=== PATIENT | female | born 1950 | race Caucasian/White ===

== ENCOUNTER 2016-12-15 10:59 | Outpatient (CLI) | payer MEDICARE | END 2016-12-15 11:00 | disposition home or self-care (01) | DX: Z12.31 Encounter for screening mammogram for malignant neoplasm of breast (principal) ==

== ENCOUNTER 2016-12-15 11:00 | Outpatient (CLI) | payer MEDICARE | END 2016-12-15 11:01 | disposition home or self-care (01) | DX: J01.91 Acute recurrent sinusitis, unspecified (principal) ==

== ENCOUNTER 2016-12-19 10:20 | Outpatient (CLI) | payer MEDICARE | END 2016-12-19 10:21 | disposition home or self-care (01) | DX: R51 Headache (principal) ==

== ENCOUNTER 2018-08-16 08:55 | Outpatient (CLI) | payer MEDICARE, OTHER ==
[2018-08-16 12:30] LABS: BASOPHILS % (AUTO) 0.8 %; EOSINOPHILS # (AUTO) 0.1 10^3/uL (0.0-0.7); EOSINOPHILS % (AUTO) 1.7 %; LYMPHOCYTES # (AUTO) 1.3 10^3/uL (1.5-3.5); LYMPHOCYTES % (AUTO) 19.4 %; MEAN CORPUSCULAR HGB CONC 34.3 g/dL (32.0-36.0); MEAN CORPUSCULAR VOLUME 96.3 fL (81.0-99.0); MEAN PLATELET VOLUME 8.1 fL (7.9-10.8); MONOCYTES # (AUTO) 0.5 10^3/uL (0.0-1.0); MONOCYTES % (AUTO) 7.2 %; NEUTROPHILS # (AUTO) 4.6 10^3/uL (1.5-6.6); NEUTROPHILS % (AUTO) 70.9 %; PLT - PLATELET COUNT 291 10^3/uL (130-450); RED BLOOD COUNT 4.23 10^6/uL (4.20-5.40); RED CELL DISTRIBUTION WIDTH 13.1 % (12.0-15.0); WHITE BLOOD COUNT 6.5 x10^3/uL (4.8-10.8)
[2018-08-16 12:47] LABS: ALBUMIN 4.1 g/dL (3.2-5.5); BILIRUBIN,TOTAL 0.9 mg/dL (0.2-1.0); CALCIUM 9.7 mg/dL (8.5-10.3); TOTAL PROTEIN 6.2 g/dL (6.7-8.2)
== END 2018-08-16 08:56 | disposition home or self-care (01) ==
LOC: LAB.WCP 08:55
PROVIDERS: ATTEND Family Medicine
DX: R10.9 Unspecified abdominal pain (principal)
CPT/HCPCS: 36415; 80053; 82150; 83690; 85025

== ENCOUNTER 2018-08-22 13:23 | Outpatient (CLI) | payer MEDICARE, OTHER ==
[2018-08-22] MEDS ORDERED: IOVERSOL 320 50 ML VIAL ONE (14:15)
[2018-08-22] MEDS ORDERED: IOPAMIDOL-300 100 ML VIAL ONE ×2 (14:15→14:16)
[2018-08-22] MEDS ORDERED: IOPAMIDOL-300 100 ML VIAL IVP ONE (15:33)
[2018-08-22] MEDS ORDERED: IOVERSOL 320 50 ML VIAL PO ONE (15:33)
--- NOTE | 2018-08-22 16:09 | CT Report ---
Reason: ABDOMINAL PAIN Procedure Date: 08/22/2018 Accession Number: [id number] / [id number] Procedure: CT - Abdomen/Pelvis W/ CPT Code: FULL RESULT: EXAM: CT ABDOMEN AND PELVIS EXAM DATE: 08/22/2018 03:32 PM. CLINICAL HISTORY: ABDOMINAL PAIN. COMPARISONS: ABDOMEN/PELVIS W/ 05/25/2016 12:22 PM. TECHNIQUE: Routine helical CT imaging was performed through the abdomen and pelvis. IV contrast: ISOVUE 300 100mL. Enteric contrast: Yes. Reconstructions: Coronal and sagittal. In accordance with CT protocol optimization, one or more of the following dose reduction techniques were utilized for this exam: automated exposure control, adjustment of mA and/or KV based on patient size, or use of iterative reconstructive technique. FINDINGS: Lung Bases: Unremarkable. Liver: Normal. No masses. Gallbladder/Bile Ducts: Unremarkable. Spleen: Normal. Pancreas: Normal. Adrenal Glands: Normal. Kidneys: Normal. No masses or hydronephrosis. Peritoneal Cavity/Bowel: The region of the ileocecal valve while not opacified with contrast gives the appearance of ileocecal intussusception. There is rectosigmoid diverticulosis without diverticulitis. No free fluid, free air or adenopathy. No masses or acute inflammatory process. Pelvic Organs: Evaluation of pelvic organs is limited by streak artifact from the bilateral arthroplasties. Vasculature: No aneurysms or other significant abnormality. Bones: Degenerative levoconvex lumbar scoliosis centered about L2-L3, mild. No aggressive osseous lesions. Bilateral total hip arthroplasties. Other: None. IMPRESSION: Question ileocecal intussusception. This condition is not normally encountered in adults without superimposed lead point pathology, i.E. occult mass. Recommendation: The ambulatory technologist informs me that the patient has a history of incomplete colonoscopies due to redundant colon. Given the CT findings, a complete colonoscopy with visualization of the cecum is mandatory. THANH The above findings of apparent ileocecal intussusception were discussed with Sulaiman Adorno by Dr. Nik Marks at 16:07 hrs on 08/22/18.
== END 2018-08-22 13:24 | disposition home or self-care (01) ==
LOC: DI 13:23
PROVIDERS: ATTEND Family Medicine
DX: R10.9 Unspecified abdominal pain (principal)
CPT/HCPCS: 74177; Q9967

== ENCOUNTER 2019-09-02 13:21 | Outpatient (CLI) | payer MEDICARE, OTHER ==
--- NOTE | 2019-09-03 08:17 | Mammography Report ---
Reason: screening mammo Procedure Date: 09/02/2019 Accession Number: [id number] / [id number] Procedure: MGN - Screening Mammo Dig Bilat CPT Code: Final Report FULL RESULT: EXAM: Screening Mammo Dig Bilat DATE: 09/02/2019 1:49 PM CLINICAL HISTORY: Screening encounter. History of nulliparity and history of endometrial cancer. TECHNIQUE: (B) - Bilateral CC, laterally exaggerated CC, MLO views were obtained. COMPARISON: 12/15/2016 through 01/01/2010. PARENCHYMAL PATTERN: (F) - The breast(s) demonstrate(s) diffuse fatty replacement. FINDINGS: There are no suspicious masses, calcifications, or areas of distortion. IMPRESSION: Negative examination. BI-RADS category 1. RECOMMENDATION: (ANNUAL) - Recommend routine annual screening mammography. BI-RADS CATEGORY: (1) - Negative. STANDARD QUALIFYING STATEMENTS: 1. This examination was not reviewed with the aid of Computer-Aided Detection (CAD). 2. A negative or benign imaging report should not preclude biopsy if clinically suspicious findings are present. 3. Dense breasts may obscure an underlying neoplasm. 4. This examination was reviewed without the aid of 3D breast imaging (tomosynthesis).
== END 2019-09-02 13:22 | disposition home or self-care (01) ==
LOC: DI.N 13:21
DX: Z12.31 Encounter for screening mammogram for malignant neoplasm of breast (principal)
CPT/HCPCS: 77067

== ENCOUNTER 2019-09-18 07:00 | Outpatient (CLI) | payer MEDICARE, OTHER ==
[2019-09-18 13:17] LABS: ALBUMIN 4.1 g/dL (3.2-5.5); ALBUMIN/GLOBULIN RATIO 1.5 (1.0-2.2); ALKALINE PHOSPHATASE 58 IU/L (42-121); ALT ALANINE AMINOTRANSFERASE 25 IU/L (10-60); AST ASPARTATE AMINOTRANSFERASE 29 IU/L (10-42); BILIRUBIN,TOTAL 0.8 mg/dL (0.2-1.0); BUN - BLOOD UREA NITROGEN 17 mg/dL (6-20); CALCIUM 9.6 mg/dL (8.5-10.3); CARBON DIOXIDE - CO2 31 mmol/L (21-32); CHLORIDE 103 mmol/L (101-111); CHOL/HDL RATIO 3.1 (<4.4); CHOLESTEROL 258 mg/dL; CREATININE 0.8 mg/dL (0.4-1.0); GFR - MDRD 72 (>89); GLUCOSE 82 mg/dL (70-100); HDL CHOLESTEROL 82 mg/dL; LDL CHOLESTEROL,CALCULATED 156 mg/dL; LDL/HDL RATIO 1.9 (<4.4); SODIUM 141 mmol/L (135-145); TOTAL PROTEIN 6.9 g/dL (6.7-8.2); VLDL CHOLESTEROL 20 mg/dL
[2019-09-18 13:25] LABS: BASOPHILS # (AUTO) 0.1 10^3/uL (0.0-0.1); BASOPHILS % (AUTO) 1.7 %; EOSINOPHILS # (AUTO) 0.2 10^3/uL (0.0-0.7); EOSINOPHILS % (AUTO) 5.3 %; HGB - HEMOGLOBIN 14.4 g/dL (12.0-16.0); LYMPHOCYTES # (AUTO) 1.3 10^3/uL (1.5-3.5); LYMPHOCYTES % (AUTO) 37.4 %; MEAN CORPUSCULAR HEMOGLOBIN 31.4 pg (27.0-31.0); MEAN CORPUSCULAR HGB CONC 32.1 g/dL (32.0-36.0); MEAN PLATELET VOLUME 9.6 fL (7.9-10.8); MONOCYTES # (AUTO) 0.4 10^3/uL (0.0-1.0); MONOCYTES % (AUTO) 10.7 %; NEUTROPHILS # (AUTO) 1.6 10^3/uL (1.5-6.6); NEUTROPHILS % (AUTO) 44.6 %; PLT - PLATELET COUNT 259 10^3/uL (130-450); RED BLOOD COUNT 4.58 10^6/uL (4.20-5.40); RED CELL DISTRIBUTION WIDTH 12.9 % (12.0-15.0); WHITE BLOOD COUNT 3.6 x10^3/uL (4.8-10.8)
[2019-09-19 12:19] LABS: HEPATITIS C ANTIBODY NON-REACTIVE (NON-REACTIVE)
== END 2019-09-18 23:59 | disposition home or self-care (01) ==
LOC: LAB.WCP 07:00
PROVIDERS: ATTEND Family Medicine
DX: E78.5 Hyperlipidemia, unspecified (principal); R10.9 Unspecified abdominal pain; Z11.59 Encounter for screening for other viral diseases
CPT/HCPCS: 36415; 80053; 80061; 83721; 84443; 85025; 86803

== ENCOUNTER 2019-10-01 13:35 | Outpatient (CLI) | payer MEDICARE, OTHER ==
--- NOTE | 2019-10-01 15:47 | DEXA Report ---
Reason: POSTMENOPAUSAL Procedure Date: 10/01/2019 Accession Number: [id number] / [id number] Procedure: DEX - Dexa Forearm CPT Code: Final Report FULL RESULT: EXAM: Dexa Spine and/or Hip, Dexa Forearm DATE: 10/01/2019 2:32 PM CLINICAL HISTORY: POSTMENOPAUSAL. FOLLOW-UP OSTEOPENIA. TECHNIQUE: TECHNIQUE: Dual energy x-ray absorptiometry (DXA) was performed on a [employer] System. Regions measured are the AP Spine and left forearm. The patient has bilateral hip replacements. COMPARISON: 04/21/2015. In accordance with the International Society for Clinical Densitometry (ISCD) guidelines, data from previous exams may be reanalyzed using current recommendations and techniques. This is done to allow a more accurate basis for comparison with the current study. FINDINGS: The data for the lumbar spine is as follows: BMD (g/cm/cm) T-SCORE Z-SCORE REGION L1 0.919 -1.8 0.1 L2 1.065 -1.1 0.7 L3 1.378 1.5 3.3 L4 1.288 0.7 2.6 TOTAL 1.171 -0.1 1.8 NOTE: All evaluable vertebrae are used for classification The data for the left forearm is as follows: BMD (g/cm/cm) T-SCORE Z-SCORE REGION 1/3 0.595 -3.2 -1.6 NOTE: The 33% radius of the nondominant forearm is used for classification. IMPRESSION: THE WHO CLASSIFICATION BASED ON THE INTERNATIONAL REFERENCE STANDARD IS OSTEOPOROSIS, REFERENCE LEFT FOREARM. THE FRACTURE RISK IS HIGH. RECOMMENDATION: Patients with diagnosis of osteoporosis or osteopenia should have regular bone mineral density assessment. For those eligible for Medicare, routine testing is allowed once every 2 years. Testing frequency can be increased for patients who have rapidly progressing disease or for those who are receiving medical therapy to restore bone mass. COMMENT: World Health Organization (WHO) definitions for osteoporosis and osteopenia: NORMAL BMD: T-score at -1.0 or higher, fracture risk is low OSTEOPENIA BMD: T-score between -1.0 and -2.5, fracture risk is increased. OSTEOPOROSIS BMD: T-score at -2.5 or lower, fracture risk is high. National Osteoporosis Foundation recommends: 1. Obtain adequate dietary calcium (at least 1200 mg per day) and vitamin D (400-800 international units per day). 2. Participate, as appropriate, in regular weightbearing and muscle-strengthening exercise. 3. Avoid tobacco use and reduce alcohol and caffeine intake. 4. For more detailed information see the website at www.NOF.org.
--- NOTE | 2019-10-01 15:47 | DEXA Report ---
Reason: POSTMENOPAUSAL Procedure Date: 10/01/2019 Accession Number: [id number] / [id number] Procedure: DEX - Dexa Spine and/or Hip CPT Code: Final Report FULL RESULT: EXAM: Dexa Spine and/or Hip, Dexa Forearm DATE: 10/01/2019 2:32 PM CLINICAL HISTORY: POSTMENOPAUSAL. FOLLOW-UP OSTEOPENIA. TECHNIQUE: TECHNIQUE: Dual energy x-ray absorptiometry (DXA) was performed on a [employer] System. Regions measured are the AP Spine and left forearm. The patient has bilateral hip replacements. COMPARISON: 04/21/2015. In accordance with the International Society for Clinical Densitometry (ISCD) guidelines, data from previous exams may be reanalyzed using current recommendations and techniques. This is done to allow a more accurate basis for comparison with the current study. FINDINGS: The data for the lumbar spine is as follows: BMD (g/cm/cm) T-SCORE Z-SCORE REGION L1 0.919 -1.8 0.1 L2 1.065 -1.1 0.7 L3 1.378 1.5 3.3 L4 1.288 0.7 2.6 TOTAL 1.171 -0.1 1.8 NOTE: All evaluable vertebrae are used for classification The data for the left forearm is as follows: BMD (g/cm/cm) T-SCORE Z-SCORE REGION 1/3 0.595 -3.2 -1.6 NOTE: The 33% radius of the nondominant forearm is used for classification. IMPRESSION: THE WHO CLASSIFICATION BASED ON THE INTERNATIONAL REFERENCE STANDARD IS OSTEOPOROSIS, REFERENCE LEFT FOREARM. THE FRACTURE RISK IS HIGH. RECOMMENDATION: Patients with diagnosis of osteoporosis or osteopenia should have regular bone mineral density assessment. For those eligible for Medicare, routine testing is allowed once every 2 years. Testing frequency can be increased for patients who have rapidly progressing disease or for those who are receiving medical therapy to restore bone mass. COMMENT: World Health Organization (WHO) definitions for osteoporosis and osteopenia: NORMAL BMD: T-score at -1.0 or higher, fracture risk is low OSTEOPENIA BMD: T-score between -1.0 and -2.5, fracture risk is increased. OSTEOPOROSIS BMD: T-score at -2.5 or lower, fracture risk is high. National Osteoporosis Foundation recommends: 1. Obtain adequate dietary calcium (at least 1200 mg per day) and vitamin D (400-800 international units per day). 2. Participate, as appropriate, in regular weightbearing and muscle-strengthening exercise. 3. Avoid tobacco use and reduce alcohol and caffeine intake. 4. For more detailed information see the website at www.NOF.org.
== END 2019-10-01 13:36 | disposition home or self-care (01) ==
LOC: DI 13:35
PROVIDERS: ATTEND Family Medicine
DX: M81.0 Age-related osteoporosis without current pathological fracture (principal)
CPT/HCPCS: 77080; 77081

== ENCOUNTER 2019-11-05 14:24 | Outpatient (CLI) | payer MEDICARE, OTHER ==
[2019-11-05 18:44] LABS: BASOPHILS # (AUTO) 0.1 10^3/uL (0.0-0.1); BASOPHILS % (AUTO) 1.6 %; EOSINOPHILS # (AUTO) 0.1 10^3/uL (0.0-0.7); EOSINOPHILS % (AUTO) 1.9 %; HGB - HEMOGLOBIN 13.6 g/dL (12.0-16.0); LYMPHOCYTES # (AUTO) 1.6 10^3/uL (1.5-3.5); LYMPHOCYTES % (AUTO) 28.4 %; MEAN CORPUSCULAR HEMOGLOBIN 32.2 pg (27.0-31.0); MEAN CORPUSCULAR HGB CONC 32.8 g/dL (32.0-36.0); MEAN CORPUSCULAR VOLUME 98.3 fL (81.0-99.0); MEAN PLATELET VOLUME 10.2 fL (7.9-10.8); MONOCYTES # (AUTO) 0.6 10^3/uL (0.0-1.0); MONOCYTES % (AUTO) 9.6 %; NEUTROPHILS # (AUTO) 3.3 10^3/uL (1.5-6.6); NEUTROPHILS % (AUTO) 58.3 %; PLT - PLATELET COUNT 247 10^3/uL (130-450); RED BLOOD COUNT 4.22 10^6/uL (4.20-5.40); RED CELL DISTRIBUTION WIDTH 12.4 % (12.0-15.0); WHITE BLOOD COUNT 5.7 x10^3/uL (4.8-10.8)
== END 2019-11-05 23:59 | disposition home or self-care (01) ==
LOC: LAB.WCP 14:24
PROVIDERS: ATTEND Family Medicine
DX: D72.819 Decreased white blood cell count, unspecified (principal)
CPT/HCPCS: 36415; 85025

== ENCOUNTER 2020-01-07 13:05 | Outpatient (CLI) | payer MEDICARE, OTHER ==
[2020-01-07 18:29] LABS: BASOPHILS # (AUTO) 0.1 10^3/uL (0.0-0.1); EOSINOPHILS # (AUTO) 0.1 10^3/uL (0.0-0.7); EOSINOPHILS % (AUTO) 2.3 %; HGB - HEMOGLOBIN 13.7 g/dL (12.0-16.0); LYMPHOCYTES # (AUTO) 1.1 10^3/uL (1.5-3.5); LYMPHOCYTES % (AUTO) 23.2 %; MEAN CORPUSCULAR HEMOGLOBIN 31.4 pg (27.0-31.0); MEAN CORPUSCULAR HGB CONC 32.3 g/dL (32.0-36.0); MEAN PLATELET VOLUME 9.8 fL (7.9-10.8); MONOCYTES # (AUTO) 0.3 10^3/uL (0.0-1.0); NEUTROPHILS # (AUTO) 3.2 10^3/uL (1.5-6.6); NEUTROPHILS % (AUTO) 66.3 %; PLT - PLATELET COUNT 278 10^3/uL (130-450); RED BLOOD COUNT 4.37 10^6/uL (4.20-5.40); RED CELL DISTRIBUTION WIDTH 13.1 % (12.0-15.0); WHITE BLOOD COUNT 4.8 x10^3/uL (4.8-10.8)
[2020-01-07 18:50] LABS: ALBUMIN 4.2 g/dL (3.2-5.5); ALBUMIN/GLOBULIN RATIO 1.9 (1.0-2.2); ALKALINE PHOSPHATASE 55 IU/L (42-121); ALT ALANINE AMINOTRANSFERASE 26 IU/L (10-60); AST ASPARTATE AMINOTRANSFERASE 29 IU/L (10-42); BILIRUBIN,TOTAL 0.7 mg/dL (0.2-1.0); BUN - BLOOD UREA NITROGEN 24 mg/dL (6-20); CALCIUM 9.5 mg/dL (8.5-10.3); CARBON DIOXIDE - CO2 29 mmol/L (21-32); CHLORIDE 101 mmol/L (101-111); CREATININE 0.9 mg/dL (0.4-1.0); GLUCOSE 103 mg/dL (70-100); SODIUM 138 mmol/L (135-145); TOTAL PROTEIN 6.4 g/dL (6.7-8.2)
[2020-01-07 18:58] LABS: RHEUMATOID FACTOR NEGATIVE (Negative)
[2020-01-07 19:09] LABS: CRP - C-REACTIVE PROTEIN < 1.0 mg/dL (0-1.0)
[2020-01-09 10:10] LABS: ANA SCREEN NEGATIVE (NEGATIVE)
== END 2020-01-07 23:59 | disposition home or self-care (01) ==
LOC: LAB.WCP 13:05
PROVIDERS: ATTEND Family Medicine
DX: G37.3 Acute transverse myelitis in demyelinating disease of central nervous system (principal); Z79.891 Long term (current) use of opiate analgesic
CPT/HCPCS: 36415; 80053; 84443; 85025; 85651; 86038; 86140; 86430

== ENCOUNTER 2020-01-07 22:21 | Outpatient (CLI) | payer MEDICARE, OTHER | END 2020-01-07 22:22 | disposition critical access hospital (66) | LOC: EMS 22:21 | PROVIDERS: ATTEND Surgery | DX: R20.2 Paresthesia of skin (principal) ==

== ENCOUNTER 2020-01-07 22:42 | Emergency (ER) | payer MEDICARE, OTHER ==
--- NOTE | 2020-01-07 23:24 | ED Physician Documentation ---
History of Present Illness - Stated complaint Stated Complaint: NUMBNESS/ WEAKNESS - Chief complaint Chief Complaint: Neuro - Additonal information Additional information: This is a 69-year-old female with history of osteoarthritis who presents with tingling throughout her body and changes in her walking. She states she began having some tingling on her right leg yesterday at 9AM, then it progressed to the left leg and then she started to have a bit of trouble walking due to reduced sensation in the legs. Then her right arm began feeling reduced sensation and have tingling and then her numbness/tingling extended to her left arm, bilateral hips and into her chest and onto her back. She states that she is little bit of soreness on her right neck but she thinks this is from doing yard work/transplanting a tree. She denies headache, denies fever, denies any history of neurologic symptoms like this in the past. She denies any history of psychiatric or psychosomatic conditions. She sees Dr. Adorno, and I ordered stat MRI of her lumbar spine scheduled for this upcoming morning at 830. Patient denies difficulty urinating or stooling. She does describe reduced sensation in her perineum. Review of Systems Constitutional: denies: Fever Eyes: denies: Loss of vision Throat: denies: Sore throat Cardiac: denies: Chest pain / pressure Respiratory: denies: Dyspnea GI: denies: Abdominal Pain : denies: Dysuria Musculoskeletal: denies: Back pain Neurologic: reports: Numbness Psychiatric: denies: Depressed Immunocompromised: denies: Immunocompromised PD PAST MEDICAL HISTORY - Past Medical History Cardiovascular: None Respiratory: None Endocrine/Autoimmune: None GI: None : None HEENT: Chronic sinusitis Psych: None Musculoskeletal: Osteoarthritis Derm: None - Past Surgical History General: Colonoscopy Ortho: Hip replacement /SCALLOP RAKER: Hysterectomy - Present Medications Home Medications: Ambulatory Orders Medication Instructions Recorded Confirmed Diclofenac Potassium 50 mg PO BID 12/24/15 12/25/15 Loratadine 10 mg PO DAILY 12/24/15 12/25/15 Fluticasone Propionate [Flovent 1 puffs BID 01/07/20 01/07/20 Diskus] Hydrocodone/Acetaminophen 0.5 tab DAILY PRN 01/07/20 01/07/20 [Hydrocodone-Acetamin 7.5-325] Hyoscyamine [Levsin] 1 tab PRN 01/07/20 01/07/20 - Allergies Allergies/Adverse Reactions: Allergies Allergy/AdvReac Type Severity Reaction Status Date / Time hydromorphone HCl * AdvReac Hallucinati Verified 01/07/20 22:59 [From Dilaudid] ons meperidine HCl * AdvReac Unknown Verified 01/07/20 22:59 [From Demerol] PD ED PE NORMAL - Vitals Vital signs reviewed: Yes - General General: Alert and oriented X 3 - HEENT HEENT: Atraumatic, PERRL - Neck Neck: Supple, no meningeal sign, Other (C-collar initially in place. No midline tenderness of the neck. Normal range of motion of the neck.No step-offs, no masses.) - Cardiac Cardiac: RRR, No murmur - Respiratory Respiratory: No respiratory distress, Clear bilaterally - Abdomen Abdomen: Normal bowel sounds, Soft, Non tender, Non distended - Rectal Rectal: Other (Performed with Sonya BENTLEY present, rectal tone is intact. Patient is able to localize touch, both pressure and light touch with a cotton swab.) - Back Back: No spinal TTP, Other (Normal in appearance, no lesions no step-offs, no tenderness.) - Derm Derm: Warm and dry - Extremities Extremities: No deformity - Neuro Neuro: Alert and oriented X 3, ground host/hostess 2-12 intact, Other (Awake, alert, oriented to person, place, event. Speech fluent and articulate. CN: normal EOMI on H- testing, sensation to light touch intact and symmetric over V1,V2,V3. Face symmetric with smiling and eyebrow raise. No droop. Tongue protrudes in midline.Motor: 5/5 strength with hand squeeze, finger abduction, elbow flexion and extension, shoulder abduction, hip flexion, knee extension, ankle dorsiflexion and plantarflexion. Sensation: Intact to light touch over all extremities she is able to localize touch everywhere, on the anterior RLL she has possible reduced discrimination between sharp and soft touch. With Sonya BENTLEY present pt has intact sensation in her perineum, normal rectal tone. PVR 0 after urination. Cerebellar: Normal finger to nose and heel to ureña. without dysmetria Gait: Somewhat shuffling gait but ambulates independently and does not have ataxia, does not require assistance. Reflexes: 1+ in bilateral biceps and patellar tendons, symmetric.) - Psych Psych: Normal mood, Normal affect Results - Vitals Vitals: Vital Signs - 24 hr 01/08/20 01/08/20 01/08/20 07:35 10:26 12:00 Temperature Heart Rate 76 76 74 Respiratory 16 16 16 Rate Blood Pressure 151/80 H 152/91 H 148/88 H O2 Saturation 98 100 99 01/08/20 01/08/20 01/08/20 19:54 21:47 22:53 Temperature 37.0 C 37.2 C 37.0 C Heart Rate 77 78 70 Respiratory 20 14 18 Rate Blood Pressure 134/82 H 135/104 H 157/97 H O2 Saturation 100 98 100 Oxygen O2 Source Room air - EKG (time done) 23:49 Other comments: Other comments (Rate 74, rhythm sinus, there is no ST segment elevation depression, no abnormal T wave inversions, intervals within normal limits.) - Labs Labs: Laboratory Tests 01/07/20 01/07/20 01/07/20 23:30 23:30 23:30 WBC 5.1 RBC 4.44 Hgb 14.0 Hct 42.4 MCV 95.5 MCH 31.5 H MCHC 33.0 RDW 13.0 Plt Count 255 MPV 9.0 Neut # (Auto) 3.5 Lymph # (Auto) 1.0 L Glynn # (Auto) 0.5 Eos # (Auto) 0.1 Baso # (Auto) 0.0 Absolute Nucleated RBC 0.00 Nucleated RBC % 0.0 ESR Sodium 139 Potassium 4.1 Chloride 101 Carbon Dioxide 28 Anion Gap 10.0 BUN 18 Creatinine 0.8 Estimated GFR (MDRD) 71 L Glucose 122 H Calcium 9.6 Magnesium 2.2 Total Bilirubin 0.6 AST 28 ALT 24 Alkaline Phosphatase 59 C-Reactive Protein Total Protein 6.8 Albumin 4.2 Globulin 2.6 Albumin/Globulin Ratio 1.6 Lipase 56 H TSH 4.11 01/08/20 01/08/20 07:32 07:32 WBC RBC Hgb Hct MCV MCH MCHC RDW Plt Count MPV Neut # (Auto) Lymph # (Auto) Glynn # (Auto) Eos # (Auto) Baso # (Auto) Absolute Nucleated RBC Nucleated RBC % ESR 3 Sodium Potassium Chloride Carbon Dioxide Anion Gap BUN Creatinine Estimated GFR (MDRD) Glucose Calcium Magnesium Total Bilirubin AST ALT Alkaline Phosphatase C-Reactive Protein < 1.0 Total Protein Albumin Globulin Albumin/Globulin Ratio Lipase TSH - Rads (name of study) Head CT WO Radiology: Other (Normal head CT) CT c spine Radiology: Other (Osteophyte complexes around C5-C7 with mild central canal narrowing, moderate bilateral C5-C6 neural foraminal narrowing, mild C3 64 neural foraminal narrowing) MR C spine W/WO Radiology: Other (Mild to moderate central stenosis with disc herniations and degenerative changes, multilevel degenerative foraminal stenosis with no focal cord signal abnormality or abnormal cord enhancement.) MR brain W/WO Radiology: Other (No acute CVA, a few FLAIR hyperintensities in the cerebral hemisphere white matter which are nonspecific and commonly seen with small vessel ischemic change, but no lesions typical of multiple sclerosis. No enhancing mass in the brain parenchyma.) PD MEDICAL DECISION MAKING - ED course Complexity details: considered differential (Bleed, mass, stroke, myelitis, multiple sclerosis, electrolyte abnormality, conversion disorder) ED course: On arrival patient has a NIH stroke scale of 0. She does not have immediate objective findings on her neuro exam, other than she has some mild sensation changes. She describes numbness but is able to feel touch, it seems more like a paresthesia. She has intact rectal tone and no urinary retention with a postvoid residual, and no back pain, making cauda equina less likely. She additionally has involvement of her upper extremities with her sensation changes which would suggest a higher level of neurologic involvement than lumbosacral spine. Labs are unremarkable. CT of the head is normal, CT of the neck shows some chronic degenerative changes but no severe stenosis. She continues to endorse difficul ty walking due to sensation changes in her legs, and states that the sensation changes are unchanged. I personally walked the patient, she is able to walk without assistance, she at times has a slightly slow shuffling gait but this seems intermittent. I spoke with Dr. Dalton who insulation worker interior surface for Dr. Adorno, I reviewed patient's chart and there was no note of psychiatric disorders. Patient appears pleasant and appropriate, she has not had any obvious major life stressors, and her symptoms have been consistent between her visit with Dr. Adorno and her visit here. I am hesitant to attribute her symptoms to anxiety or conversion disorder, particular given her symptoms related to walking. I spoke with Dr. Debra Pro of [facility] neurology, after reviewing the case with her she recommends a MRI of the brain and C-spine with contrast, these were ordered. Updated patient of the plan, she is in agreement. Pt care assumed at the end of my shift by Dr. Chong with the plan to follow up on MRI and to touch base with [facility] neurology on the results. There was delay in obtaining the MRI with and without contrast, so I actuallty resumed care of the patient when I returned on 01/07 prior to MRI resulting. Pt has been resting in bed, eating without issue with no acute changes noted throughout the day. MRI was been obtained and there were no signs of abnormal spinal cord enhancement. The brain MRI has a few small FLAIR hyperintensities that are nonspecific, but no large ischemic changes or lesions of multiple sclerosis. I performed a complete repeated neurologic exam on the patient, I find no changes from yesterday. She is able to localize touch over all 4 extremities, her strength is excellent and 5/5 throughout her upper and lower extremities, Cranial nerves are all normal, She has no dysmetria, no ataxia. Bladder scan 20 minutes after urination is 50cc. She has been up out of bed multiple times and is able to walk down the bedolla without support. She has reflexes which are 1+ and symmetric in the upper and lower extremities. With SHEREE Gutierrez present For exam, she continues to have intact sensation in her perineum, and rectal tone is normal. I spoke with Dr. Debra Pro of [facility] neurology at 01/07 at 20:39, reviewed this results of the MRI and the C-spine and her exam. She does not see signs of an acute neurologic emergency, or an obvious explanation for the patient's symptoms. We discussed whether imaging of the remainder of her spine was indicated at this time, but given her clear upper extremity symptoms which have been persistent, it is extremely unlikely that we would not capture pathology with the brain and C-spine MRI. Additionally patient does not have signs of cauda equina on a thorough and repeated neurologic exam. We discussed the potential for Guillain-Nelson type syndrome, however the initial unilateral onset of her symptoms followed by reported rapid progression and then plateau of her symptoms makes this unlikely. Her labs are unremarkable including a negative CRP and ESR, and she has no back pain to suggest epidural abscess or infectious/inflammatory process. She has no pain other than mild R trapezius soreness. Dr. Pro does not feel that further work-up in the emergency department or transfer for further evaluation is indicated at this time. I reviewed the results of the patient's studies, and the fact that I was unable to clearly find explanation for her symptoms. Her symptoms have been stable and she would like to go home at this time. Given that she is ambulatory, continues to have a very reassuring neurologic exam, we will discharge and plan for close outpatient follow up. I did call the on-call provider for the [place] [facility], and spoke with Dr. Dalton to relay the results of the work-up and that we did imaging of her brain and C-spine but she did not obtain the L-spine MRI initially ordered by Dr. Adorno, this can be rescheduled promptly. I had an in-depth discussion with the patient on return precautions, and if she has any progression of her symptoms whatsoever, such as inability to use the bathroom, incontinence, progression of numbness, or particularly weakness or difficulty walking, she will return to an emergency department immediately. She verbalized her understanding and is comfortable with the plan, she was discharged and is ambulatory on discharge. Departure - Departure Disposition: 01 Home, Self Care Clinical Impression: Paresthesia Condition: Good Comments: Our imaging studies and labs did not show an obvious cause of your symptoms today. I think it is very important that you continue to follow closely with Dr. Adorno. If you are having any worsening or progression of your symptoms, such as increasing difficulty walking, back pain, problems with coordination, fever, difficulty going to the bathroom or incontinence, confusion, return to the emergency department immediately. Discharge Date/Time: 01/08/20 23:11
[2020-01-07 23:40] LABS: BASOPHILS % (AUTO) 0.8 %; EOSINOPHILS # (AUTO) 0.1 10^3/uL (0.0-0.7); LYMPHOCYTES % (AUTO) 20.1 %; MEAN CORPUSCULAR HEMOGLOBIN 31.5 pg (27.0-31.0); MEAN CORPUSCULAR VOLUME 95.5 fL (81.0-99.0); MONOCYTES # (AUTO) 0.5 10^3/uL (0.0-1.0); MONOCYTES % (AUTO) 9.1 %; NEUTROPHILS # (AUTO) 3.5 10^3/uL (1.5-6.6); NEUTROPHILS % (AUTO) 68.8 %; PLT - PLATELET COUNT 255 10^3/uL (130-450); RED BLOOD COUNT 4.44 10^6/uL (4.20-5.40); WHITE BLOOD COUNT 5.1 x10^3/uL (4.8-10.8)
[2020-01-07 23:52] LABS: ALBUMIN 4.2 g/dL (3.2-5.5); ALBUMIN/GLOBULIN RATIO 1.6 (1.0-2.2); BILIRUBIN,TOTAL 0.6 mg/dL (0.2-1.0); CALCIUM 9.6 mg/dL (8.5-10.3); CREATININE 0.8 mg/dL (0.4-1.0); MAGNESIUM 2.2 mg/dL (1.7-2.8); TOTAL PROTEIN 6.8 g/dL (6.7-8.2)
--- NOTE | 2020-01-08 02:25 | CT Report ---
Reason: numbness throughout body Procedure Date: 01/08/2020 Accession Number: [id number] / [id number] Procedure: CT - HEAD WO CPT Code: Final Report FULL RESULT: EXAM: CT HEAD EXAM DATE: 01/08/2020 02:07 AM. CLINICAL HISTORY: Numbness throughout body. COMPARISON: SINUSES 12/15/2016 11:37 AM. TECHNIQUE: Multiaxial CT images were obtained from the foramen magnum to the vertex. Reformats: Sagittal and coronal. IV contrast: None. In accordance with CT protocol optimization, one or more of the following dose reduction techniques were utilized for this exam: automated exposure control, adjustment of mA and/or KV based on patient size, or use of iterative reconstructive technique. FINDINGS: Parenchyma: No intraparenchymal hemorrhage. No evidence of mass, midline shift, or CT findings of infarction. Cormier-white differentiation is distinct. Extraaxial Spaces: Normal for age. No subdural or epidural collections identified. Ventricles: Normal in size and position. Sinuses and Orbits: Imaged paranasal sinuses, orbits, and mastoids show no significant abnormality. Bones: No evidence of fracture or calvarial defect. Other: None. IMPRESSION: Normal head CT. RADIA
--- NOTE | 2020-01-08 03:13 | CT Report ---
Reason: Numbness throughout body Procedure Date: 01/08/2020 Accession Number: [id number] / [id number] Procedure: CT - CERVICAL SPINE WO CPT Code: Final Report FULL RESULT: EXAM: CT CERVICAL SPINE WITHOUT CONTRAST DATE: 01/08/2020 02:10 AM. HISTORY: Numbness throughout body. COMPARISONS: SINUSES 12/15/2016 11:37 AM. TECHNIQUE: Thin-section axial images were acquired of the cervical spine without contrast. Post-processing: Coronal and sagittal reformats. Other: None. In accordance with CT protocol optimization, one or more of the following dose reduction techniques were utilized for this exam: automated exposure control, adjustment of mA and/or KV based on patient size, or use of iterative reconstructive technique. FINDINGS: Alignment: Mild cervical kyphosis. 2 mm anterolisthesis of C3 on C4. Bones: No fracture or bone lesion. Interspace Levels/Facets: C1-C2: Unremarkable. C2-C3: Moderate left facet hypertrophy. No central canal or neural foraminal narrowing. C3-C4: Moderate right and mild left facet hypertrophy. Mild right neural foraminal narrowing. C4-C5: Moderate right facet hypertrophy. No central canal or neural foraminal narrowing. C5-C6: Disk height loss and endplate degenerative changes. Disk osteophyte complex with mild central canal narrowing. Uncovertebral osteophytosis with moderate bilateral neural foraminal narrowing. C6-C7: Disk height loss and disk osteophyte complex with mild central canal narrowing. Uncovertebral osteophytosis with moderate bilateral neural foraminal narrowing. C7-T1: Unremarkable. Musculature: Normal. No fatty atrophy. Other: The paravertebral and prevertebral soft tissues are unremarkable. The lung apices are clear. IMPRESSION: 1. No evidence of cervical spine fracture. 2. C5-C6 and C6-C7 discussed about complexes with mild central canal narrowing. 3. Moderate bilateral C5-C6 and moderate bilateral C6-C7 neural foraminal narrowing. Mild right C3-C4 neural foraminal narrowing. RADIA
[2020-01-08] MEDS ORDERED: LORATADINE 10 MG TABLET PO STA (07:43)
[2020-01-08] MEDS ORDERED: FLUTICASONE NASAL SPRAY NAS SCH (08:00)
--- NOTE | 2020-01-08 09:23 | ED Physician Documentation ---
ED Addendum - Addendum Addendum: 01/08/20 09:21 Signout from the night emergency physician patient with some leg numbness in the thigh as well as arm feeling of weakness and problems with gait and balance. She was planned to have a MRI of the head and neck and previously had had a lumbar spine MRI planned outpatient for this morning at 830. She was to get the alternate imaging done at that time slot. The patient however did not go to MRI at that time because the oil burner technician said they did not have time for both studies or with contrast. She would be deferred till later in the day. There was not much alternative bargaining as the maintenance mechanic technician was quite definitive on not having enough time so we will wait till later in the day.
[2020-01-08] MEDS ORDERED: GADOBUTROL 7.5 MMOL/7.5 ML VIAL ONE (16:35)
[2020-01-08] MEDS ORDERED: GADOBUTROL 7.5 MMOL/7.5 ML VIAL IVP ONE (18:29)
--- NOTE | 2020-01-08 19:13 | MRI Report ---
Reason: Numbness/tingling in legs>arms, difficulty walking Procedure Date: 01/08/2020 Accession Number: [id number] / [id number] Procedure: MRI - Brain W/WO CPT Code: Final Report FULL RESULT: EXAM: MRI BRAIN WITHOUT AND WITH CONTRAST EXAM DATE: 01/08/2020 06:44 PM. CLINICAL HISTORY: Numbness/tingling in legs and arms, difficulty walking. COMPARISON: None. TECHNIQUE: Multiplanar, multisequence T1-weighted and fluid-sensitive MR sequences of the brain were performed before and after administration of intravenous contrast. Sequences optimized for routine evaluation. Other: None. IV Contrast: 6 cc Gadavist. FINDINGS: No abnormal restricted diffusion signal is present. No cerebellar tonsillar ectopia is present. No abnormal magnetic susceptibility is identified in the brain parenchyma. Ventricles and sulci are within normal limits. No extra-axial fluid collection is seen. There are a few punctate FLAIR hyperintensities in the cerebral hemisphere white matter bilaterally. These are greater in number on the right relative to the left. No abnormal T2 FLAIR hyperintense signal is seen in the infratentorial brain. No enhancing mass is identified in the brain parenchyma. Expected enhancement is seen in the major dural venous sinuses. The cavernous sinuses enhance in symmetric fashion. No mass is present in either orbit or in either Meckel's cave. The cavernous sinuses enhance in symmetric fashion. There is an expected flow void in the major intracranial vessels at the skull base. IMPRESSION: 1. No acute CVA. 2. A few FLAIR hyperintensities in the cerebral hemisphere white matter bilaterally are nonspecific. Commonly, these are seen secondary to small vessel ischemic change or in association with certain headache syndromes. White matter lesions have been described in many other entities, including in demyelinating processes. No lesion typical of multiple sclerosis is identified on the current study. 3. No enhancing mass is identified in the brain parenchyma. RADIA
--- NOTE | 2020-01-08 19:39 | MRI Report ---
Reason: Numbness/tingling in legs>arms, difficulty walking Procedure Date: 01/08/2020 Accession Number: [id number] / [id number] Procedure: MRI - Cervical Spine W/WO CPT Code: Final Report FULL RESULT: EXAM: MRI CERVICAL SPINE WITHOUT AND WITH CONTRAST EXAM DATE: 01/08/2020 06:43 PM. CLINICAL HISTORY: Difficulty walking. Numbness and tingling in the arms and legs. COMPARISON: CERVICAL SPINE W/O 01/08/2020 1:57 AM. BRAIN W/WO 01/08/2020 4:58 PM. TECHNIQUE: Multiplanar, multisequence T1-weighted and fluid-sensitive sequences of the cervical spine before and after administration of intravenous contrast. Other: None. IV contrast: Without and with 6 mL Gadavist. FINDINGS: Neurologic Structures: The visualized posterior fossa structures are unremarkable. No focal lesion or signal abnormality of the cervical spinal cord. No abnormal cord enhancement. Alignment: Minimal C5 on C6 retrolisthesis. Bone Marrow: No acute vertebral body height loss or focal marrow edema. Interspace Levels/Facets: C1-C2: Patent central canal. Mild chronic hypertrophic degenerative changes around the odontoid process. C2-C3: Moderate facet arthropathy on the left. Minimal foraminal stenosis on the left. No disk herniation or central stenosis. Patent right foramen. C3-C4: Negligible disk space narrowing. Minimal posterior disk bulge. No significant central stenosis. No cord impingement. Mild left and moderate right facet arthropathy. Minimal uncinate process hypertrophy. Mild foraminal stenosis bilaterally. C4-C5: Mild disk degeneration. Marginal spurring. Shallow posterior disk bulge. Minimal central stenosis. Mild left and moderate right facet arthropathy. No significant foraminal stenosis. C5-C6: Moderate disk degeneration. Moderate central canal stenosis. Broad-based posterior disk protrusion with osteophyte. Ventral thecal sac effacement. Minimal ventral cord flattening. Mild facet arthropathy. Moderate bilateral uncinate process hypertrophy and spurring. Moderate to severe bilateral foraminal stenosis, predominantly from uncinate process spurring and hypertrophy possibly accompanied by an intraforaminal disk protrusion. C6-C7: Moderate disk degeneration. Mild central stenosis without cord impingement. Bilateral paracentral disk protrusions with osteophyte, left greater than right. Mild to moderate right and moderate to severe left lateral recess stenosis. Additional intraforaminal disk protrusion, left greater than right, accompanied by uncinate process spurring and hypertrophy. Negligible facet arthropathy. Foraminal stenosis appears at least moderate on the right and probably severe on the left. C7-T1: Mild facet arthropathy. Minimally narrowed disk space. Slight disk bulge. No significant stenosis. Spinal Canal: No enhancing lesions within the spinal canal. No epidural abscess. Musculature: Normal. No edema, enhancement, or fatty atrophy. Other: No focal prevertebral edema. IMPRESSION: 1. Central stenosis is moderate at C5-C6, mild at C6-C7 and minimal at C4-C5. 2. Lateral recess stenosis from paracentral disk herniations at C6-C7 is mild to moderate on the right and moderate to severe on the left. 3. Multilevel degenerative foraminal stenosis. This is especially prominent bilaterally at C5-C6 and left worse than right at C6-C7. 4. No focal cord signal abnormality or abnormal cord enhancement. 5. Disk degeneration is most severe at the C5-C6 and C6-C7 levels. 6. Prominent broad-based posterior disk osteophyte complex at C5-C6 and at C6-C7, bilateral paracentral disk herniations are present, left larger than right. 7. Multilevel facet arthropathy, most prominent on the left at C2-C3 and on the right at C3-C4 and C4-C5. 8. Minimal degenerative C5 on C6 retrolisthesis. RADIA
[2020-01-08 22:53] VITALS: BP 157/97
== END 2020-01-08 23:11 | disposition home or self-care (01) ==
LOC: EDUNIT# → ED 22:42
DX: R20.2 Paresthesia of skin (principal); G37.3 Acute transverse myelitis in demyelinating disease of central nervous system; Z79.891 Long term (current) use of opiate analgesic
CPT/HCPCS: 36415; 51798; 70450; 70553; 72125; 72156; 80053; 83690; 83735; 84443; 85025; 85651; 86038; 86140; 86430; 93005; 96374; 99284; A9270; A9585

== ENCOUNTER 2020-01-16 07:26 | Outpatient (CLI) | payer MEDICARE, OTHER ==
[2020-01-16] MEDS ORDERED: GADOBUTROL 7.5 MMOL/7.5 ML VIAL ONE (07:39)
[2020-01-16] MEDS ORDERED: GADOBUTROL 7.5 MMOL/7.5 ML VIAL IVP ONE (08:14)
--- NOTE | 2020-01-16 09:31 | MRI Report ---
Reason: PARESTHESIA OF BILAT LEGS Procedure Date: 01/16/2020 Accession Number: [id number] / [id number] Procedure: MRI - Lumbar Spine W/WO CPT Code: Final Report FULL RESULT: EXAM: MRI LUMBAR SPINE WITHOUT AND WITH CONTRAST EXAM DATE: 01/16/2020 08:30 AM. CLINICAL HISTORY: Bilateral leg paresthesias. Right arm numbness. COMPARISONS: None available. TECHNIQUE: Multiplanar, multisequence T1-weighted and fluid-sensitive sequences of the lumbar spine from T12 to S1 before and after administration of intravenous contrast. Other: None. IV contrast: 6 mL Gadavist. FINDINGS: T2 hyperintensities which do not significantly enhance in the left kidney statistically likely reflect cortical cysts. No suspicious marrow replacement is identified in the lumbar vertebral bodies. Loss of disk space height is seen at L2-L3 and at L3-L4. Endplate irregularity is seen at L3-L4. No marrow edema is seen to suggest an acute or subacute endplate infraction. No abnormal signal or enhancement is seen in the conus medullaris. T10-T11: A mild to moderate posterior disk protrusion is seen in the sagittal views with extension into the proximal foramen bilaterally. The foramen are not seen in their entirety on the sagittal images. An element of foraminal narrowing or stenosis is not excluded particularly on the left. T11-L2: No posterior disk protrusion is seen. L2-L3: A moderate broad-based posterior disk protrusion is seen greater towards the left. There is a foraminal and far lateral component on the left. Superior lateral recess stenosis is seen bilaterally. Central canal is borderline to mildly stenotic. L3-L4: A moderate posterior disk protrusion is seen. The central canal is borderline to mildly stenotic. Superior lateral recess stenosis is seen much greater on the right relative to the left. There is a foraminal component to the disk protrusion bilaterally particularly on the right. There is a far lateral component to the disk protrusion bilaterally particularly on the right. Moderate right foraminal stenosis is seen. Left foraminal narrowing is present. L4-L5: A mild broad-based posterior disk protrusion is seen greater towards the left. Superior lateral recess narrowing is seen on the right and superior lateral recess stenosis is seen on the left. There is a shallow foraminal protrusion bilaterally. There is mild to moderate left and mild right foraminal stenosis. L5-S1: No posterior disk protrusion is seen. No foraminal stenosis. Facet/ligamentum flavum hypertrophy is seen greatest in the mid and lower lumbar spine. This is greatest on the right at L3-L4. IMPRESSION: 1. Degenerative disk disease is seen at T10-T11 and from L2 through L5. 2. The central canal is borderline to mildly stenotic at L2-L3 and at L3-L4. 3. Multilevel lateral recess stenosis is present. This is greatest on the right at L3-L4. 4. Foraminal stenosis is present at multiple levels in the lumbar spine. This is greatest on the right at L3-L4. 5. Degenerative disk disease is seen at T10-T11. There is suspicion for some degree of foraminal stenosis at this level. Comment: The following findings are so common in adults without low back pain that while we report their presence, they must be interpreted with caution and in the context of the clinical situation. (Reference Scottk et al, Spine 2001) Prevalence of findings in patients without low back pain: Disk degeneration (any evidence): 92% Disk desiccation/T2 signal loss: 83% Disk height loss: 56% Disk bulge: 64% Disk protrusion: 32% Annular tear/high intensity zone: 38% RADIA
== END 2020-01-16 07:27 | disposition home or self-care (01) ==
LOC: DI 07:26
PROVIDERS: ATTEND Family Medicine
DX: M51.26 Other intervertebral disc displacement, lumbar region (principal); M51.36 Other intervertebral disc degeneration, lumbar region; M48.061 Spinal stenosis, lumbar region without neurogenic claudication; M51.34 Other intervertebral disc degeneration, thoracic region; M51.24 Other intervertebral disc displacement, thoracic region
CPT/HCPCS: 72158; A9585

== ENCOUNTER 2020-04-15 08:57 | Outpatient (CLI) | payer MEDICARE, OTHER ==
--- NOTE | 2020-04-16 18:31 | Nuclear Medicine Report ---
PROCEDURE: Bone Whole Body INDICATIONS: HEMANGIOMA OF VERTEBRAL BODY RADIOPHARMACEUTICAL: 24.9 mCi Tc-99m MDP IV. TECHNIQUE: Flow and blood pool images were obtained of the thorax. Delayed whole-body scintigrams were obtained approximately 3-4 hours after intravenous injection of radiotracer. Anterior and posterior views wer e acquired from vertex to feet. Additional left and right oblique views of the pelvis were obtained. COMPARISON: None available. FINDINGS: There is no scintigraphic findings in thoracic spine to correlate with the lesion in T6 ve rtebra. There is increase activity in the lower cervical spine, mid thoracic spine and lumbar spine, most likely secondary to degenerative disc or facet disease. There foci of increased activity in shou lders bilaterally, wrists bilaterally, hips bilaterally and left foot, consistent with degenerative/a rthritic changes. IMPRESSION: 1. No bone scan findings to correlate with the MRI lesion seen in T6 vertebral body. 2. Increased activity in lower cervical spine, mid thoracic spine and lumbar spine is most likely deg enerative in nature. 3. Degenerative or arthritic changes in multiple peripheral joints as described. Reviewed by: Yelitza Perez MD on 04/16/2020 6:30 PM PDT Approved by: Yelitza Perez MD on 04/16/2020 6:30 PM PDT Station ID: [id number]
== END 2020-04-15 08:58 | disposition home or self-care (01) ==
LOC: DI 08:57
PROVIDERS: ATTEND Family Medicine
DX: D18.09 Hemangioma of other sites (principal); M89.49 Other hypertrophic osteoarthropathy, multiple sites
CPT/HCPCS: 78306; A9503

== ENCOUNTER 2020-12-24 14:57 | Outpatient (CLI) | payer MEDICARE, OTHER ==
--- NOTE | 2020-12-24 15:53 | XRAY Report ---
PROCEDURE: Thoracic Spine 3 View INDICATIONS: THORACIC BACK PAIN TECHNIQUE: 3 views of the thoracic spine were acquired. COMPARISON: None. FINDINGS: Bones: No fractures or dislocations. No suspicious bony lesions. Mild multilevel endplate osteophyt e formation. Visualized ribs are intact. Mild leftward curvature of the upper thoracic spine. Soft tissues: No paravertebral stripe thickening. IMPRESSION: Multilevel degenerative disc disease. No acute fracture. No osseous lesion. If symptoms and/or clinic al suspicion for pathology continue, further assessment with repeat plain films, or advanced imaging (e.g., CT, MRI, or bone scan) is recommended for further assessment. Reviewed by: Suresh Pulido MD on 12/24/2020 3:52 PM PST Approved by: Suresh Pulido MD on 12/24/2020 3:52 PM PST Station ID: [id number]
== END 2020-12-24 14:58 | disposition home or self-care (01) ==
LOC: DI.N 14:57
PROVIDERS: ATTEND Family Medicine
DX: M25.78 Osteophyte, vertebrae (principal); M51.34 Other intervertebral disc degeneration, thoracic region

== ENCOUNTER 2021-11-10 11:21 | Outpatient (CLI) | payer MEDICARE, OTHER ==
--- NOTE | 2021-11-11 06:32 | Mammography Report ---
BILATERAL DIGITAL SCREENING MAMMOGRAM 3D/2D: 11/10/2021 CLINICAL: Routine screening. Comparison is made to exams dated: 09/02/2019 mammogram, 12/15/2016 mammogram, 03/06/2014 mammogram, mammogram - [facility], 01/11/2010 [facility], and 01/01/2010 [facility]. There are scattered fibroglandular elements in both breasts. No significant masses, calcifications, or other findings are seen in either breast. There has been no significant interval change. IMPRESSION: NEGATIVE There is no mammographic evidence of malignancy. A 1 year screening mammogram is recommended. This exam was interpreted at Station ID: [id number]. NOTE: For mammograms, a report in lay terms will be sent to the patient. Approximately 15% of breast malignancies will not be visualized mammographically. In the management of a palpable breast mass, a negative mammogram must not discourage biopsy of a clinically suspicious lesion. Electronically Signed By: Elmer Harris M.D. ddp/penrad:11/10/2021 12:14:37 ACR BI-RADS Category 1: Negative 3341F PARENCHYMAL PATTERN: (A) - The breast(s) demonstrate(s) scattered fibroglandular densities. BI-RADS CATEGORY: (1) - 1 RECOMMENDATION: (ANNUAL) - Recommend routine annual screening mammography. [id number] 1 year screening LATERALITY: (B)
== END 2021-11-10 11:22 | disposition home or self-care (01) ==
LOC: DI.N 11:21
PROVIDERS: ATTEND Family Medicine
DX: Z12.31 Encounter for screening mammogram for malignant neoplasm of breast (principal)

== ENCOUNTER 2021-11-10 14:18 | Outpatient (CLI) | payer MEDICARE, OTHER ==
--- NOTE | 2021-11-10 14:52 | DEXA Report ---
PROCEDURE: Dexa Spine and/or Hip INDICATIONS: POST MENOPAUSAL TECHNIQUE: Dual energy x-ray absorptiometry (DXA) was performed on a [employer] System. Regions measur ed are the AP Spine, and left forearm due to bilateral hip replacements. COMPARISON: 10/01/2019. FINDINGS: Lumbar Spine: Bone Mineral Density 1.178 g/cm/cm,T score 0.1. There is interval 18% increase in total lumbar spi ne bone mineral density is previous study. Left forearm: Bone Mineral Density 0.592 g/cm/cm, T score -3.2. There is interval 0.5% decrease in left forearm bon e mineral density since previous study. (T score greater or equal to -1.0: NORMAL) (T score from -1.1 to -2.4: OSTEOPENIA) (T score less than or equal to -2.5 to: OSTEOPOROSIS) Impression: Osteoporosis. Patients with diagnosis of osteoporosis or osteopenia should have regular bone mineral density assess ment. For those eligible for Medicare, routine testing is allowed once every 2 years. Testing frequ ency can be increased for patients who have rapidly progressing disease or for those who are receivin g medical therapy to restore bone mass. Reviewed by: Venkata Berg MD on 11/10/2021 2:51 PM PST Approved by: Venkata Berg MD on 11/10/2021 2:51 PM PST Station ID: [id number]
== END 2021-11-10 14:19 | disposition home or self-care (01) ==
LOC: DI 14:18
PROVIDERS: ATTEND Family Medicine
DX: Z13.820 Encounter for screening for osteoporosis (principal); N95.8 Other specified menopausal and perimenopausal disorders; M81.0 Age-related osteoporosis without current pathological fracture; Z96.643 Presence of artificial hip joint, bilateral

== ENCOUNTER 2022-10-07 08:00 | Outpatient (CLI) | payer MEDICARE, OTHER | END 2022-10-07 23:59 | disposition home or self-care (01) | LOC: LAB.N 08:00 | PROVIDERS: ATTEND Nurse Practitioner | DX: N39.0 Urinary tract infection, site not specified (principal) | CPT/HCPCS: 87077; 87086 ==

== ENCOUNTER 2022-10-21 08:00 | Outpatient (CLI) | payer MEDICARE, OTHER | END 2022-10-21 23:59 | disposition home or self-care (01) | LOC: LAB.N 08:00 | PROVIDERS: ATTEND Family Medicine | DX: N39.0 Urinary tract infection, site not specified (principal) | CPT/HCPCS: 87086 ==

== ENCOUNTER 2024-01-10 13:27 | Outpatient (CLI) | payer MEDICARE, OTHER ==
--- NOTE | 2024-01-11 09:55 | Mammography Report ---
BILATERAL DIGITAL SCREENING MAMMOGRAM 3D/2D: 01/10/2024 CLINICAL: Routine screening. Comparison is made to exams dated: 11/10/2021 mammogram, 09/02/2019 mammogram, and 12/15/2016 mammogram - [facility]. There are scattered areas of fibroglandular density in both breasts (category b / 25%-50% glandular t issue). No significant masses, calcifications, or other findings are seen in either breast. There has been no significant interval change. IMPRESSION: NEGATIVE There is no mammographic evidence of malignancy. A 1 year screening mammogram is recommended. Based on the Tyrer Cuzick model (a risk assessment model) the patient's lifetime risk is 5.0% and her 10 year risk is 3.7%. According to the ACR, ACS, and NCCN guidelines, an annual breast MRI exam wanda g with mammogram is recommended if the patient's lifetime risk is 20% or greater. This exam was interpreted at Station ID: [id number]. NOTE: For mammograms, a report in lay terms will be sent to the patient. Approximately 15% of breast malignancies will not be visualized mammographically. In the management of a palpable breast mass, a negative mammogram must not discourage biopsy of a clinically suspicious lesion. Electronically Signed By: Osorio barboza/melinda:01/10/2024 17:42:53 letter sent: No_Letter ACR BI-RADS Category 1: Negative 3341F PARENCHYMAL PATTERN: (A) - The breast(s) demonstrate(s) scattered fibroglandular densities. BI-RADS CATEGORY: (1) - 1 RECOMMENDATION: (ANNUAL) - Recommend routine annual screening mammography. [id number] 1 year screening LATERALITY: (B)
== END 2024-01-10 13:28 | disposition home or self-care (01) ==
LOC: DI 13:27
DX: Z12.31 Encounter for screening mammogram for malignant neoplasm of breast (principal); R92.323 Mammographic fibroglandular density, bilateral breasts

== ENCOUNTER 2024-01-10 13:28 | Outpatient (CLI) | payer MEDICARE, OTHER ==
--- NOTE | 2024-01-11 10:25 | DEXA Report ---
PROCEDURE: Dexa Spine and/or Hip INDICATIONS: OSTEOPOROSIS TECHNIQUE: Dual energy x-ray absorptiometry (DXA) was performed on a [employer] System. Regions measur ed are the AP Spine, femoral neck, and if needed forearm. COMPARISON: 11/10/2021 FINDINGS: Lumbar Spine: Bone Mineral Density: 0.961 g/cm/cm,T score: -1.4. There has been no statistically significant serrano e in bone mineral density since the prior study. Left Forearm: Bone Mineral Density: 0.636 g/cm/cm, T score: -2.7. There has been no statistically significant serrano e in bone mineral density since the prior study. (T score greater or equal to -1.0: NORMAL) (T score from -1.1 to -2.4: OSTEOPENIA) (T score less than or equal to -2.5 to: OSTEOPOROSIS) Impression: By WHO criteria, this patient has osteoporosis. No statistical interval change in bone mineral density of the lumbar spine. No statistical interval c hange in bone mineral density of the left forearm. Patients with diagnosis of osteoporosis or osteopenia should have regular bone mineral density assess ment. For those eligible for Medicare, routine testing is allowed once every 2 years. Testing frequ ency can be increased for patients who have rapidly progressing disease or for those who are receivin g medical therapy to restore bone mass. Reviewed by: Shade Ivey MD on 01/11/2024 10:24 AM PDT Approved by: Shade Ivey MD on 01/11/2024 10:24 AM PDT Station ID: [id number]
== END 2024-01-10 13:29 | disposition home or self-care (01) ==
LOC: DI 13:28
PROVIDERS: ATTEND Family Medicine
DX: M81.0 Age-related osteoporosis without current pathological fracture (principal)